=== PATIENT | male | born 1980 | race Caucasian/White ===

== ENCOUNTER 2022-09-09 08:21 | Outpatient (CLI) | payer OTHER, SELFPAY ==
[2022-09-09 13:52] LABS: Glucose* 109 mg/dL (60-115)
== END 2022-09-09 08:22 | disposition home or self-care (01) ==
PROVIDERS: PCP Physician Assistant Medical; Visit Provider Emergency Medicine
DX: F41.8 Other specified anxiety disorders (principal)
CPT/HCPCS: 82947; 84443

== ENCOUNTER 2025-04-05 16:43 | Outpatient (CLI) | payer OTHER, SELFPAY | END 2025-04-05 16:44 | disposition home or self-care (01) | LOC: LKVREF 16:43 | PROVIDERS: PCP Physician Assistant Medical; Visit Provider Nurse Practitioner Family | DX: L01.00 Impetigo, unspecified (principal); R21 Rash and other nonspecific skin eruption | CPT/HCPCS: 87070 ==